=== PATIENT | male | born 1945 | race Caucasian/White ===

== ENCOUNTER → 2016-12-27 | Outpatient (CLI) | payer MEDICARE ==
--- NOTE | 2016-12-27 10:16 | PCVCIMAG ---
APPROVED REPORT Study performed: 12/27/2016 09:29:31 EXAM: Comprehensive 2D, Doppler, and color-flow Echocardiogram Patient Location: Echo lab Status: routine BSA: 2.36 Rhythm: Pacemaker Other Information Study Quality: Technically Limited Indications Diabetes CAD Hypertension/HDD CABG. CHF. Dyspnea. Cough. 2D Dimensions RVDd: 33.29 mm IVSd: 6.19 (7-11mm)LVOT Diam: 25.27 (18-24mm) LVDd: 66.91 mm PWd: 10.62 (7-11mm)Ascending Ao: 37.25 (22-36mm) LVDs: 54.37 (25-40mm) Left Atrium: 42.91 (27-40mm) LV Single Plane 4CH: 23.46 % Mckeon's LVEF: 37.77 % Volumes Left Atrial Volume (Systole) Single Plane 4CH: 64.75 mLSingle Plane 2CH: 57.54 mL LA ESV Index: 29.00 mL/m2 Aortic Valve AoV Peak David.: 1.38 m/s AO Peak Gr.: 9.62 mmHgLVOT Max P.43 mmHg LVOT Max V: 0.78 m/s GAB Vmax: 2.83 cm2 Tricuspid Valve TR Peak David.: 3.53 m/s TR Peak Gr.: 49.85 mmHg Left Ventricle Left ventricle is dilated. There is normal left ventricular wall thickness. Left ventricular ejection fraction is severely decreased. LVEF is 20-25%. This study is not technically sufficient to allow evaluation of the LV diastolic function. Right Ventricle The right ventricle is normal size. The right ventricular systolic function is normal. Atria The left atrium size is normal. The right atrium size is normal. Pacemaker lead is present in the right atrium. Aortic Valve The aortic valve is normal in structure. No aortic regurgitation is present. There is no aortic valvular stenosis. Mitral Valve The mitral valve is normal in structure. Mild mitral annular calcification. There is no mitral valve regurgitation noted. No evidence of mitral valve stenosis. Tricuspid Valve The tricuspid valve is normal in structure. Mild to moderate tricuspid regurgitation. Pulmonary artery pressure is 57mmhg. Pulmonic Valve The pulmonary valve is normal in structure. Trace pulmonic regurgitation. Great Vessels The aortic root is normal in size. IVC is normal in size and collapses with >50% inspiration Pericardium There is no pericardial effusion. <Conclusion> Left ventricle is dilated. Left ventricular ejection fraction is severely decreased. LVEF is 20-25%. This study is not technically sufficient to allow evaluation of the LV diastolic function. The right ventricle is normal size. The left atrium size is normal. The right atrium size is normal. Pacemaker lead is present in the right atrium. The aortic valve is normal in structure. There is no mitral valve regurgitation noted. Mild to moderate tricuspid regurgitation. Pulmonary artery pressure is 57mmhg. There is no pericardial effusion.
== END | disposition home or self-care (01) ==
LOC: PCVCIMAG 09:23
PROVIDERS: ATTEND Internal Medicine Cardiovascular Disease
DX: I07.1 Rheumatic tricuspid insufficiency (principal); I37.1 Nonrheumatic pulmonary valve insufficiency; I47.2 Ventricular tachycardia; E11.9 Type 2 diabetes mellitus without complications; E78.00 Pure hypercholesterolemia, unspecified; I25.5 Ischemic cardiomyopathy; I11.0 Hypertensive heart disease with heart failure; I50.21 Acute systolic (congestive) heart failure; I25.10 Atherosclerotic heart disease of native coronary artery without angina pectoris; I48.0 Paroxysmal atrial fibrillation; M19.90 Unspecified osteoarthritis, unspecified site; E66.9 Obesity, unspecified; Z79.01 Long term (current) use of anticoagulants; Z79.4 Long term (current) use of insulin; Z95.1 Presence of aortocoronary bypass graft; Z95.0 Presence of cardiac pacemaker; Z87.891 Personal history of nicotine dependence; Z68.38 Body mass index [BMI] 38.0-38.9, adult
CPT/HCPCS: 80061; 93306; G0463

== ENCOUNTER → 2017-01-03 | Outpatient (CLI) | payer MEDICARE ==
[~2017-01-03] MED LIST: DIAZEPAM 10 MG TABLET.; HEPARIN for ARTERIAL LINE 0 ML; IOHEXOL 350 MG/ML 100 ML VIAL.; IOHEXOL 350 MG/ML 50 ML VIAL.; IV NORMAL SALINE 500ML BAG 500 ML; LIDOCAINE 1% Multi-Dose 20 ML VIAL.
== END | disposition home or self-care (01) ==
LOC: PCVCINTER 10:35
DX: I73.9 Peripheral vascular disease, unspecified (principal); Z53.9 Procedure and treatment not carried out, unspecified reason; I10 Essential (primary) hypertension; E78.5 Hyperlipidemia, unspecified; E11.9 Type 2 diabetes mellitus without complications; E78.00 Pure hypercholesterolemia, unspecified
CPT/HCPCS: J1644; J7040; Q9967